=== PATIENT | female | born 1985 | race Caucasian/White ===

== ENCOUNTER 2017-07-26 12:00 | Emergency (ER) | payer MEDICAID ==
[2017-07-26] MEDS ORDERED: ALBUTEROL SULFATE (0.083%) 2.5 MG/3 ML NEB INH ONE (12:46)
[2017-07-26] MEDS ORDERED: METHYLPREDNISOLONE PF 125MG/VIAL IM ONE (12:47)
--- NOTE | 2017-07-26 12:51 | Emergency Department Record ---
History of Present Illness - General Chief Complaint: Asthma Stated Complaint: ASTHMAS Time Seen by Provider: 07/26/17 12:45 Source: Patient Mode of Arrival: Ambulatory - History of Present Illness Initial Comments: The patient has a history of asthma and has just recovered from bronchitis about 2-3 weeks ago. She has been feeling tight in her chest and deep breathng causes her to have coughing spasms, so she returned here for a treaatment. She denies f,c, colored sputum or other problems. Onset/Timin -: Days(s) Asthma History: Childhood onset Severity: Moderate Context: Allergen exposure, Exercise Associated Symptoms: None Treatments Prior to Arrival: Inhaled bronchodilator - Related Data Current Asthma Therapy: Inhaled bronchodilator Allergies Allergy/AdvReac Type Severity Reaction Status Date / Time codeine Allergy Intermediate VOMITING Verified 07/26/17 12:20 Travel Screening - Travel/Exposure Within Last 30 Days Have you traveled within the last 30 days?: No - Travel/Exposure Within Last Year Have you traveled outside the [place] in the last year?: No - Additonal Travel Details Have you been exposed to anyone with a communicable illness?: No - Travel Symptoms Symptom Screening: None Review of Systems Reviewed: No additional complaints except as noted below Constitutional: Reports: As per HPI. Denies: Chills, Fever, Malaise, Night sweats, Weakness, Weight change Eyes: Reports: As per HPI. Denies: Eye discharge, Eye pain, Photophobia, Vision change ENT: Reports: As per HPI. Denies: Congestion, Dental pain, Ear pain, Epistaxis , Hearing loss, Throat pain Respiratory: Reports: As per HPI. Denies: Cough, Dyspnea, Hemoptysis, Stridor, Wheezes Cardiovascular: Reports: As per HPI. Denies: Arrhythmia, Chest pain, Dyspnea on exertion, Edema, Murmurs, Orthopnea, Palpitations, Paroxysmal nocturnal dyspnea, Rheumatic Fever, Syncope Endocrine: Reports: As per HPI. Denies: Fatigue, Heat or cold intolerance, Polydipsia, Polyuria Gastrointestinal: Reports: As per HPI. Denies: Abdominal pain, Constipation, Diarrhea, Hematemesis, Hematochezia, Melena, Nausea, Vomiting Genitourinary: Reports: As per HPI. Denies: Abnormal menses, Discharge, Dyspareunia, Dysuria, Frequency, Hematuria, Incontinence, Retention, Urgency Musculoskeletal: Reports: As per HPI. Denies: Arthralgia, Back pain, Gout, Joint swelling, Myalgia, Neck pain Skin: Reports: As per HPI. Denies: Bruising, Change in color, Change in hair/ nails, Lesions, Pruritus, Rash Neurological: Reports: As per HPI. Denies: Abnormal gait, Confusion, Headache, Numbness, Paresthesias, Seizure, Tingling, Tremors, Vertigo, Weakness Psychiatric: Reports: As per HPI. Denies: Anxiety, Auditory hallucinations, Depression, Homicidal thoughts, Suicidal thoughts, Visual hallucinations Hematological/Lymphatic: Reports: As per HPI. 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 - GI Hx GI Disorders: Yes Hx Irritable Bowel: Yes - Hx Genitourinary Disorders: No - ENDOCRINE Hx Endocrine Disorders: No - MUSCULOSKELETAL Hx Musculoskeletal Disorders: No - PSYCH Hx Psych Problems: Yes Hx Anxiety: Yes - HEMATOLOGY/ONCOLOGY Hx Hematology/Oncology Disorders: No Family Medical History Any Significant Family History?: Yes Family Hx Comment (NOT TO BE USED IN PLACE OF ITEMS BELOW): mother, grandmother w/Crohn's Hx Anxiety: Father, Mother Hx Depression: Father, Mother Hx Resp Disorders: Father Physical Exam - General General Appearance: Alert, Oriented x3, Cooperative, No acute distress - Head Head exam: Normal inspection - Eye Eye exam: Normal appearance, PERRL Pupils: Normal accommodation - ENT ENT exam: Normal exam, Mucous membranes moist, Normal external ear exam, Normal orophraynx, TM's normal bilaterally Ear exam: Normal external inspection. negative: External canal tenderness Nasal Exam: Normal inspection. negative: Discharge, Sinus tenderness Mouth exam: Normal external inspection, Tongue normal Teeth exam: Normal inspection. negative: Dental caries Throat exam: Normal inspection. negative: Tonsillar erythema, Tonsillar exudate - Neck Neck exam: Normal inspection, Full ROM. negative: Tenderness - Respiratory Respiratory exam: Normal lung sounds bilaterally, Decreased breath sounds (deep breathing precipitates coughing/wheezing episodes with expiratory wheeze during cough), Prolonged expiratory. negative: Respiratory distress - Cardiovascular Cardiovascular Exam: Regular rate, Normal rhythm, Normal heart sounds - GI/Abdominal GI/Abdominal exam: Soft, Normal bowel sounds. negative: Tenderness - Rectal Rectal exam: Deferred - exam: Deferred - Extremities Extremities exam: Normal inspection, Full ROM, Normal capillary refill. negative: Tenderness - Back Back exam: Reports: Normal inspection, Full ROM. Denies: Muscle spasm, Rash noted, Tenderness - Neurological Neurological exam: Alert, Normal gait, Oriented X3, Reflexes normal - Psychiatric Psychiatric exam: Normal affect, Normal mood - Skin Skin exam: Dry, Intact, Normal color, Warm Course Vital Signs 07/26/17 12:22 Temperature 98.3 F Pulse Rate 81 Respiratory 18 Rate Blood Pressure 131/71 Pulse Ox 99 Medical Decision Making - Management Options MDM Management: No Additional Work-up Planned Disposition Disposition: Discharge Clinical Impression: Asthma Qualifiers: Asthma severity: mild Asthma persistence: intermittent Asthma complication type : uncomplicated Qualified Code(s): J45.20 - Mild intermittent asthma, uncomplicated Disposition: Home, Self-Care Condition: (1) Good Instructions: Asthma (ED) Additional Instructions: Continue present medications. Follow up with PCP as needed. Quality - Quality Measures Quality Measures: N/A - Blood Pressure Screening Does Patient Have Any of the Following: No Blood Pressure Classification: Pre-Hypertensive BP Reading Systolic Measurement: 131 Diastolic Measurement: 71 Screening for High Blood Pressure: Patient Exclusion, Hx of HTN [G9744]
== END 2017-07-26 13:32 | disposition home or self-care (01) ==
LOC: ER 12:00
DX: J45.20 Mild intermittent asthma, uncomplicated (principal)
CPT/HCPCS: 94640; 96372; 99283; J2930; J7613

== ENCOUNTER 2018-02-07 21:49 | Emergency (ER) | payer MEDICAID ==
[2018-02-07] MEDS ORDERED: MAGNESIUM HYDROXIDE/AL HYDROX 30 ML, LIDOCAINE VISC 2% 15ML 15 ML PO ONE ×2 (22:24)
[2018-02-07] MEDS ORDERED: IBUPROFEN 400 MG TABLET PO ONE (22:24)
--- NOTE | 2018-02-07 22:27 | Emergency Department Record ---
History of Present Illness - General Chief Complaint: Knee injury Stated Complaint: L KNEE INJURY Time Seen by Provider: 02/07/18 22:18 Source: Patient Mode of Arrival: Wheelchair - History of Present Illness Initial Comments: Patient injured her right knee by hype-rextending it on Friday02-03-18. She went to a local [facility] got an xray, and they told er to wear an iva wrap, and put her on tylenol and ibuprofen. Today she ws going down a step and it gave way and caused great pain which put her into tears. Her knee hurts inferior andmedial to the patella Complaint: Knee injury Onset/Timin -: Minutes(s) Injury: Knee: Right Type of Injury: Other (gave way going down a step) Place: Home Severity: Mild Severity scale (1-10): 8 Associated Symptoms: Snap/pop sensation Treatments Prior to Arrival: Bandage, Cold therapy - Related Data Home Medications Medication Instructions Recorded Confirmed Last Taken Ibuprofen [Ibu] 800 mg PO ASDIR 02/07/18 02/07/18 Unknown Allergies Allergy/AdvReac Type Severity Reaction Status Date / Time codeine Allergy Intermediate VOMITING Verified 02/07/18 22:07 Travel Screening - Travel/Exposure Within Last 30 Days Have you traveled within the last 30 days?: No - Travel/Exposure Within Last Year Have you traveled outside the [place] in the last year?: No - Additonal Travel Details Have you been exposed to anyone with a communicable illness?: No - Travel Symptoms Symptom Screening: None Review of Systems Reviewed: No additional complaints except as noted below Constitutional: Reports: As per HPI. Denies: Chills, Fever, Malaise, Night sweats, Weakness, Weight change Eyes: Reports: As per HPI. Denies: Eye discharge, Eye pain, Photophobia, Vision change ENT: Reports: As per HPI. Denies: Congestion, Dental pain, Ear pain, Epistaxis , Hearing loss, Throat pain Respiratory: Reports: As per HPI. Denies: Cough, Dyspnea, Hemoptysis, Stridor, Wheezes Cardiovascular: Reports: As per HPI. Denies: Arrhythmia, Chest pain, Dyspnea on exertion, Edema, Murmurs, Orthopnea, Palpitations, Paroxysmal nocturnal dyspnea, Rheumatic Fever, Syncope Endocrine: Reports: As per HPI. Denies: Fatigue, Heat or cold intolerance, Polydipsia, Polyuria Gastrointestinal: Reports: As per HPI. Denies: Abdominal pain, Constipation, Diarrhea, Hematemesis, Hematochezia, Melena, Nausea, Vomiting Genitourinary: Reports: As per HPI. Denies: Abnormal menses, Discharge, Dyspareunia, Dysuria, Frequency, Hematuria, Incontinence, Retention, Urgency Musculoskeletal: Reports: As per HPI. Denies: Arthralgia, Back pain, Gout, Joint swelling, Myalgia, Neck pain Skin: Reports: As per HPI. Denies: Bruising, Change in color, Change in hair/ nails, Lesions, Pruritus, Rash Neurological: Reports: As per HPI. Denies: Abnormal gait, Confusion, Headache, Numbness, Paresthesias, Seizure, Tingling, Tremors, Vertigo, Weakness Psychiatric: Reports: As per HPI. Denies: Anxiety, Auditory hallucinations, Depression, Homicidal thoughts, Suicidal thoughts, Visual hallucinations Hematological/Lymphatic: Reports: As per HPI. 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 - GI Hx GI Disorders: Yes Hx Irritable Bowel: Yes - Hx Genitourinary Disorders: No - ENDOCRINE Hx Endocrine Disorders: No - MUSCULOSKELETAL Hx Musculoskeletal Disorders: No - PSYCH Hx Psych Problems: Yes Hx Anxiety: Yes - HEMATOLOGY/ONCOLOGY Hx Hematology/Oncology Disorders: No Family Medical History Any Significant Family History?: Yes Family Hx Comment (NOT TO BE USED IN PLACE OF ITEMS BELOW): mother, grandmother w/Crohn's Hx Anxiety: Father, Mother Hx Depression: Father, Mother Hx Resp Disorders: Father Physical Exam - General General Appearance: Alert, Oriented x3, Cooperative, Mild distress - Head Head exam: Normal inspection - Eye Eye exam: Normal appearance, PERRL Pupils: Normal accommodation - ENT ENT exam: Normal exam, Mucous membranes moist, Normal external ear exam, Normal orophraynx, TM's normal bilaterally Ear exam: Normal external inspection. negative: External canal tenderness Nasal Exam: Normal inspection. negative: Discharge, Sinus tenderness Mouth exam: Normal external inspection, Tongue normal Teeth exam: Normal inspection. negative: Dental caries Throat exam: Normal inspection. negative: Tonsillar erythema, Tonsillar exudate - Neck Neck exam: Normal inspection, Full ROM. negative: Tenderness - Respiratory Respiratory exam: Normal lung sounds bilaterally. negative: Respiratory distress - Cardiovascular Cardiovascular Exam: Regular rate, Normal rhythm, Normal heart sounds - GI/Abdominal GI/Abdominal exam: Soft, Normal bowel sounds. negative: Tenderness - Rectal Rectal exam: Deferred - exam: Deferred - Extremities Extremities exam: Normal inspection, Full ROM, Normal capillary refill, Tenderness (right knee tender inferiorly and medial to patella, medial joint space, and slightly laterally and over patella. No visible effusion.) - Back Back exam: Reports: Normal inspection, Full ROM. Denies: Muscle spasm, Rash noted, Tenderness - Neurological Neurological exam: Alert, Normal gait, Oriented X3, Reflexes normal - Psychiatric Psychiatric exam: Normal affect, Normal mood - Skin Skin exam: Dry, Intact, Normal color, Warm Course Vital Signs 02/07/18 22:03 Temperature 98.7 F Pulse Rate 66 Respiratory 20 Rate Blood Pressure 134/74 Pulse Ox 99 Medical Decision Making - Management Options MDM Management: Additional Work-up Planned (e.g. ADM/Transfer/OP Study) ( orthopedic referral) - Data Complexity MDM Data: X-Ray Ordered and/or Reviewed (Right knee Negative per ed physician ( preliminary)) Disposition Disposition: Discharge Clinical Impression: Right knee injury Qualifiers: Encounter type: initial encounter Qualified Code(s): S89.91XA - Unspecified injury of right lower leg, initial encounter Disposition: Home, Self-Care Condition: (1) Good Instructions: Posterior Cruciate Ligament Injury (ED), Knee Immobilizer (ED) Additional Instructions: Crutches, immobilizer. Ice, elevate. Minimal ambulation. Tylenol alternated with ibuprofen as directed as needed for pain. Follow up with Dr. Heaton as instructed. Bring disc of knee xray with you to apointment. Referrals: BELIA HEATON [DOCTOR OF OSTEOPATH] - Quality - Quality Measures Quality Measures: N/A - Blood Pressure Screening Does Patient Have Any of the Following: No Blood Pressure Classification: Pre-Hypertensive BP Reading Systolic Measurement: 134 Diastolic Measurement: 74 Screening for High Blood Pressure: < Pre-Hypertensive BP, F/U Documented > [ G8950] Pre-Hypertensive Follow-up Interventions: Follow-up with rescreen every year.
[2018-02-07] MEDS ORDERED: ACETAMINOPHEN 325 MG TAB PO ONE (23:47)
--- NOTE | 2018-02-10 11:08 | RADIOLOGY REPORT ---
EXAM: LEFT KNEE HISTORY: PAIN. TECHNIQUE: Four views of the left knee were obtained. Comparison: None. Encounter: Initial. FINDINGS: Negative for fracture or dislocation. The soft tissues are unremarkable. The joint spaces are preserved. IMPRESSION: NEGATIVE LEFT KNEE EXAMINATION. JOB NUMBER: [id number] MTDD
== END 2018-02-07 23:50 | disposition home or self-care (01) ==
LOC: ER 21:49
DX: S89.91XA Unspecified injury of right lower leg, initial encounter (principal); X50.0XXA Overexertion from strenuous movement or load, initial encounter; Y92.009 Unspecified place in unspecified non-institutional (private) residence as the place of occurrence of the external cause; Z87.891 Personal history of nicotine dependence
CPT/HCPCS: 99283

== ENCOUNTER 2018-05-20 01:08 | Emergency (ER) | payer MEDICAID ==
--- NOTE | 2018-05-20 01:17 | Emergency Department Record ---
History of Present Illness - General Chief complaint: Toothache Stated complaint: DENTAL PAIN Time Seen by Provider: 05/20/18 01:11 Source: Patient Mode of Arrival: Ambulatory Limitations: No limitations - History of Present Illness Initial comments: 32 yo patient presents with left upper widsom tooth pain and swelling. The onset has been one day. The tooth has been infected in the past. She has seen a dentist but she is waiting for an oral surgery referral. Mild facial swelling on the left. No eye pain or vision changes. She is able to open and close the jaw but with pain. No trismus. No ear pain. No neck pain or swelling. MD complaint: Tooth pain -: Days(s) (1) Location: Tooth # (16) Quality: Aching Consistency: Constant Improves with: None Worsens with: Other (chewing) Context- Dental: History of dental caries - Related Data Previous Rx's Medication Instructions Recorded Clindamycin HCl 300 mg PO QID #30 capsule 05/20/18 Naproxen [Naprosyn] 500 mg PO BID #25 tablet 05/20/18 Allergies Allergy/AdvReac Type Severity Reaction Status Date / Time codeine Allergy Intermediate VOMITING Unverified 03/30/18 12:06 Review of Systems Constitutional: Denies: Chills, Fever, Malaise, Weakness Eyes: Denies: Eye discharge ENT: Reports: As per HPI, Dental pain. Denies: Congestion, Ear pain, Epistaxis , Throat pain Respiratory: Denies: Cough, Dyspnea, Wheezes Cardiovascular: Denies: Chest pain Endocrine: Denies: Fatigue Gastrointestinal: Denies: Abdominal pain, Diarrhea, Nausea, Vomiting Genitourinary: Denies: Dysuria Musculoskeletal: Denies: Arthralgia, Back pain, Joint swelling, Myalgia Skin: Denies: Bruising, Change in color, Rash Neurological: Denies: Headache Psychiatric: Denies: Anxiety Hematological/Lymphatic: Denies: Easy bleeding, Easy bruising Past Medical History - SOCIAL HISTORY Smoking Status: Former smoker Drug Use: None - RESPIRATORY Hx Respiratory Disorders: Yes Hx Asthma: Yes - CARDIOVASCULAR Hx Cardio Disorders: No - NEURO Hx Neuro Disorders: Yes Hx Dizziness: Yes Hx Headaches: Yes 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 - GI Hx GI Disorders: Yes Hx Irritable Bowel: Yes - Hx Genitourinary Disorders: No - ENDOCRINE Hx Endocrine Disorders: No - MUSCULOSKELETAL Hx Musculoskeletal Disorders: No - PSYCH Hx Psych Problems: Yes Hx Anxiety: Yes - HEMATOLOGY/ONCOLOGY Hx Hematology/Oncology Disorders: No Family Medical History Family Hx Comment (NOT TO BE USED IN PLACE OF ITEMS BELOW): mother, grandmother w/Crohn's Hx Anxiety: Father, Mother Hx Depression: Father, Mother Hx Resp Disorders: Father Physical Exam - General General Appearance: Alert, Oriented x3, Cooperative, No acute distress Limitations: No limitations - Head Head exam: Atraumatic, Normal inspection - Eye Eye exam: Normal appearance, PERRL. negative: Conjunctival injection, Periorbital swelling, Periorbital tenderness, Scleral icterus Pupils: Normal accommodation. negative: Irregular, Unequal - ENT ENT exam: Normal exam, Mucous membranes moist, Normal orophraynx, TM's normal bilaterally Ear exam: Normal external inspection Nasal Exam: Normal inspection Teeth exam: Dental caries, Dental tenderness #, Fractured tooth #, Gingival enlargement (mild around the #16, no abscess, widely patent posterior oral cavity). negative: Normal inspection - Neck Neck exam: Normal inspection, Full ROM. negative: Lymphadenopathy, Tenderness - Respiratory Respiratory exam: Normal lung sounds bilaterally. negative: Respiratory distress - Cardiovascular Cardiovascular Exam: Regular rate, Normal rhythm, Normal heart sounds - Neurological Neurological exam: Alert, CN II-XII intact, Normal gait, Oriented X3. negative : Motor sensory deficit - Psychiatric Psychiatric exam: Normal affect, Normal mood - Skin Skin exam: Dry, Intact, Normal color, Warm Disposition Disposition: Discharge Clinical Impression: Dental caries Disposition: Home, Self-Care Condition: (1) Good Instructions: Toothache (ED) Additional Instructions: Continue to follow up with dentist and oral surgery Call your family doctor for close follow up Take the antibiotics as directed Be seen or return if worse, fever, swelling or any new concerns Prescriptions: Clindamycin HCl 300 mg PO QID #30 capsule Naproxen [Naprosyn] 500 mg PO BID #25 tablet Forms: Patient Portal Access Time of Disposition: 01:22 Quality - Quality Measures Quality Measures: N/A - Blood Pressure Screening Does Patient Have Any of the Following: No Blood Pressure Classification: Pre-Hypertensive BP Reading Systolic Measurement: 138 Diastolic Measurement: 82 Screening for High Blood Pressure: < Pre-Hypertensive BP, F/U Documented > [ G8950] Pre-Hypertensive Follow-up Interventions: Referral to alternative/primary care provider.
[2018-05-20] MEDS ORDERED: IBUPROFEN 600 MG TABLET PO ONE (01:19)
[2018-05-20] MEDS ORDERED: HYDROCODONE/APAP 5/325MG TABLET PO ONE (01:19)
[2018-05-20] MEDS ORDERED: CLINDAMYCIN 150 MG CAP PO ONE (01:19)
== END 2018-05-20 01:36 | disposition home or self-care (01) ==
LOC: ER 01:08
DX: K02.9 Dental caries, unspecified (principal); R11.2 Nausea with vomiting, unspecified; R42 Dizziness and giddiness; Z87.891 Personal history of nicotine dependence
CPT/HCPCS: 99282 ×2; 99284 ×2; 96374; 96361; 85025; 80053; 84703; 93005; 93010; J2405; J7030

== ENCOUNTER 2018-05-20 07:39 | Emergency (ER) | payer MEDICAID ==
[2018-05-20] MEDS ORDERED: ONDANSETRON HCL IV 4 MG/2 ML VIAL IV ONE (07:57)
[2018-05-20] MEDS ORDERED: 0.9 % SODIUM CHLORIDE 1,000 ML BAG IV ONE (07:57)
--- NOTE | 2018-05-20 08:10 | Emergency Department Record ---
History of Present Illness - General Chief complaint: ENT Stated complaint: PASSED OUT Time Seen by Provider: 05/20/18 07:51 Source: Patient Mode of Arrival: Wheelchair Limitations: No limitations - History of Present Illness Initial comments: The patient is here with her mother due to having significant dental pain for days and becoming nauseated and having multiple episodes of vomiting this AM. Her mother then found her on the floor this AM. The patient is not sure if she passed out or just was lightheaded and very nauseated. Presently she denies any CP, SOB, MELENDREZ, AP or visual changes. MD complaint: Other Onset/Timin -: Hour(s) Severity: Moderate Severity scale (1-10): 9 Quality: Aching Context- Dental: Other - Related Data Previous Rx's Medication Instructions Recorded Clindamycin HCl 300 mg PO QID #30 capsule 05/20/18 Naproxen [Naprosyn] 500 mg PO BID #25 tablet 05/20/18 Ondansetron [Zofran Odt] 4 mg SL .Q4-6H PRN #12 tab.rapdis 05/20/18 Allergies Allergy/AdvReac Type Severity Reaction Status Date / Time codeine Allergy Intermediate VOMITING Verified 05/20/18 07:42 Travel Screening - Travel/Exposure Within Last 30 Days Have you traveled within the last 30 days?: No - Travel/Exposure Within Last Year Have you traveled outside the [place] in the last year?: No - Additonal Travel Details Have you been exposed to anyone with a communicable illness?: No - Travel Symptoms Symptom Screening: None Review of Systems Constitutional: Denies: Chills, Fever Eyes: Denies: Eye discharge ENT: Denies: Congestion, Throat pain Respiratory: Denies: Dyspnea Cardiovascular: Denies: Arrhythmia, Chest pain Endocrine: Reports: Fatigue Gastrointestinal: Reports: Nausea, Vomiting. 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 - GI Hx GI Disorders: Yes Hx Irritable Bowel: Yes - Hx Genitourinary Disorders: No - ENDOCRINE Hx Endocrine Disorders: No - MUSCULOSKELETAL Hx Musculoskeletal Disorders: No - PSYCH Hx Psych Problems: Yes Hx Anxiety: Yes - HEMATOLOGY/ONCOLOGY Hx Hematology/Oncology Disorders: No Family Medical History Any Significant Family History?: Yes Family Hx Comment (NOT TO BE USED IN PLACE OF ITEMS BELOW): mother, grandmother w/Crohn's Hx Anxiety: Father, Mother Hx Depression: Father, Mother Hx Resp Disorders: Father Physical Exam - General General Appearance: Alert, Oriented x3, Cooperative, No acute distress - Head Head exam: Atraumatic, Normocephalic, Normal inspection - Eye Eye exam: Normal appearance, PERRL - ENT ENT exam: Normal orophraynx Teeth exam: Dental caries (L upper posterior molars.), Other (There is no surrounding gum line swelling or obvious abscess.). negative: Normal inspection Throat exam: Normal inspection. negative: Tonsillar erythema, Tonsillar exudate - Neck Neck exam: Normal inspection, Full ROM. negative: Tenderness - Respiratory Respiratory exam: Normal lung sounds bilaterally. negative: Respiratory distress - Cardiovascular Cardiovascular Exam: Regular rate, Normal rhythm, Normal heart sounds - GI/Abdominal GI/Abdominal exam: Soft, Normal bowel sounds. negative: Tenderness - Extremities Extremities exam: Normal inspection, Full ROM, Normal capillary refill. negative: Tenderness - Neurological Neurological exam: Alert, Normal gait. negative: Abnormal gait, Motor sensory deficit Course Vital Signs 05/20/18 07:45 Temperature 97.9 F Pulse Rate 70 Respiratory 18 Rate Blood Pressure 122/70 Pulse Ox 98 - Reevaluation(s) Reevaluation #1: The patient is doing a lot better at this time. She states her nausea is improved and she is up walking with no dizziness or lightheadedness. She does feel ready for home. 05/20/18 09:04 Medical Decision Making - Data Complexity MDM Data: Labs Ordered and/or Reviewed, EKG Ordered and/or Reviewed - Lab Data Result diagrams: 05/20/18 08:15 05/20/18 08:15 - EKG Data -: EKG Interpreted by Me EKG: No Acute Changes, Normal EKG Disposition Disposition: Discharge Clinical Impression: Nausea and vomiting Qualifiers: Vomiting type: unspecified Vomiting Intractability: non-intractable Qualified Code(s): R11.2 - Nausea with vomiting, unspecified Disposition: Home, Self-Care Condition: (2) Stable Instructions: Acute Nausea and Vomiting (ED) Additional Instructions: Please use the Zofran for nausea and please try to decrease your oral pain medicines if you think that could be causing your nausea. Please see the Oral Surgeon L[facility] and return to the ER for any worsening symptoms. Prescriptions: Ondansetron [Zofran Odt] 4 mg SL .Q4-6H PRN #12 tab.rapdis PRN Reason: Nausea Forms: Patient Portal Access Time of Disposition: 09:06 Quality - Quality Measures Quality Measures: N/A - Blood Pressure Screening View Details: Yes Does Patient Have Any of the Following: No Blood Pressure Classification: Pre-Hypertensive BP Reading Systolic Measurement: 122 Diastolic Measurement: 70 Screening for High Blood Pressure: < Pre-Hypertensive BP, F/U Documented > [ G8950] Pre-Hypertensive Follow-up Interventions: Referral to alternative/primary care provider.
[2018-05-20 08:25] LABS: BASO % 0.4 % (0-6); EOS % 2.5 % (0-6); GRAN % 66.4 % (47-80); HEMATOCRIT 42.7 % (35.0-47.0); HEMOGLOBIN 14.1 gm/dl (11.6-16.0); LYMPH % 22.9 % (16-45); MEAN CELL VOLUME 92.4 fl (81-97); MEAN CORPUSCULAR HEMOGLOBIN 30.5 pg (27-33); MEAN PLATELET VOLUME 10.7 fl (7.4-10.4); MONO % 7.8 % (0-9); PLATELET COUNT 362 K/uL (130-400); RED BLOOD COUNT 4.62 M/uL (3.80-5.40); RED CELL DISTRIBUTION WIDTH 12.5 % (11.5-14.5); WHITE BLOOD COUNT W/O DIFF 5.1 K/uL (4.2-12.2)
[2018-05-20 08:41] LABS: BLOOD UREA NITROGEN 16 mg/dL (6-20); CREATININE 0.6 mg/dL (0.5-0.9); EST GLOMERULAR FILTRATION RATE > 60 mL/min
[2018-05-20 08:42] LABS: TOTAL PROTEIN 6.6 g/dL (6.6-8.7)
[2018-05-20 08:44] LABS: GLUCOSE,RANDOM 96 mg/dL (74-109)
[2018-05-20 08:46] LABS: ALT/SGPT 11 U/L (<33)
[2018-05-20 08:47] LABS: ALB/GLOB RATIO 2.1 (1.1-1.8); ALBUMIN 4.5 g/dL (4.0-5.0); ALKALINE PHOSPHATASE 45 U/L (35-104); AST/SGOT 13 U/L (10.0-35.0)
== END 2018-05-20 09:17 | disposition home or self-care (01) ==
LOC: ER 07:39
DX: R11.2 Nausea with vomiting, unspecified (principal); R42 Dizziness and giddiness; K08.89 Other specified disorders of teeth and supporting structures; Z87.891 Personal history of nicotine dependence
CPT/HCPCS: 80053; 84703; 85025; 93005; 93010; J2405; J7030

== ENCOUNTER 2018-12-28 09:41 | Emergency (ER) | payer MEDICAID ==
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
--- NOTE | 2018-12-29 12:22 | CT SCAN REPORT ---
EXAM: CT OF THE BRAIN WITHOUT CONTRAST HISTORY: ACUTE RIGHT SIDED HEADACHE. FALL HITTING RIGHT PARIETAL AREA ONE WEEK AGO. TECHNIQUE: Routine noncontrast CT of the brain was obtained. Comparison: CT of the brain without contrast dated 05/18/12. FINDINGS: The ventricles and subarachnoid spaces remain normal in size. No area of abnormally increased or decreased attenuation is noted throughout the brain substance. The klein white interfaces are distinct. No abnormal extraaxial fluid collection nor skull fracture. Small round lucencies within the high anterior right parietal bone are stable, likely developmental. The visualized paranasal sinuses and mastoid air cells are clear. The orbits as visualized are unremarkable. IMPRESSION: NEGATIVE NONCONTRAST CT APPEARANCE OF THE BRAIN. JOB NUMBER: [id number] MTDD
== END 2018-12-28 10:49 | disposition home or self-care (01) ==
LOC: ER 09:41
DX: S09.90XA Unspecified injury of head, initial encounter (principal); R51 Headache; R11.0 Nausea; W18.2XXA Fall in (into) shower or empty bathtub, initial encounter; Y92.002 Bathroom of unspecified non-institutional (private) residence as the place of occurrence of the external cause; Z87.891 Personal history of nicotine dependence
CPT/HCPCS: 70450; 99283